=== PATIENT | female | born 1950 | race Caucasian/White ===

== ENCOUNTER 2020-01-13 00:44 | Emergency (ER) | payer MEDICARE, OTHER ==
--- NOTE | 2020-01-13 01:26 | EDM.PDOC ---
ED HPI GENERAL MEDICAL PROBLEM - General Chief Complaint: ENT Problem Time Seen by Provider: 01/13/20 01:17 Source of Information: Reports: Patient, Family, RN Notes Reviewed History Limitations: Reports: No Limitations - History of Present Illness INITIAL COMMENTS - FREE TEXT/NARRATIVE: 69-year-old female presents emergency department today with pain upper part of jaw with purulent discharge coming from a tooth, she is not had any fevers no difficulty swallowing no nausea vomiting no shortness of breath recently had dental work done Treatments [employer]: Reports: NSAIDS Upper Jaw Pain Score (Numeric/FACES): 2 - Related Data Allergies Allergy/AdvReac Type Severity Reaction Status Date / Time Sulfa (Sulfonamide Allergy Hives Verified 01/13/20 00:48 Antibiotics) Home Meds: Home Meds ALPRAZolam [Alprazolam] 0.5 tab PO ASDIRECTED 01/13/20 [History] Cholecalciferol (Vitamin D3) [Vitamin D3] 1,000 units PO ASDIRECTED 01/13/20 [History] Famotidine 10 mg PO BID 01/13/20 [History] Ibuprofen 1 tab PO ASDIRECTED 01/13/20 [History] Metoprolol Tartrate 0.5 tab PO BID 01/13/20 [History] Past Medical History HEENT History: Reports: Cataract Cardiovascular History: Reports: Arrhythmia, Other (See Below) Other Cardiovascular History: a flutter, svt Respiratory History: Reports: Other (See Below) Other Respiratory History: "partial collapsed lung" Musculoskeletal History: Reports: Fracture, Osteoporosis Neurological History: Reports: Migraines Endocrine/Metabolic History: Reports: Osteoporosis Dermatologic History: Reports: Other (See Below) Other Dermatologic History: unknown chronic rashes - Infectious Disease History Infectious Disease History: Reports: Chicken Pox, Measles, Mumps - Past Surgical History HEENT Surgical History: Reports: Cataract Surgery, Tonsillectomy Cardiovascular Surgical History: Reports: Cardiac Ablation, Other (See Below) Other Cardiovascular Surgeries/Procedures: angiogram Social & Family History - Tobacco Use Tobacco Use Status *Q: Former Tobacco User Used Tobacco, but Quit: Yes Month/Year Tobacco Last Used: 2013 - Caffeine Use Caffeine Use: Reports: Coffee - Recreational Drug Use Recreational Drug Use: No ED ROS ENT - Review of Systems Review Of Systems: See Below Constitutional: Denies: Fever HEENT: Reports: Dental Pain Respiratory: Reports: No Symptoms Cardiovascular: Reports: No Symptoms GI/Abdominal: Reports: No Symptoms ED EXAM, ENT - Physical Exam Exam: See Below Text/Narrative:: Mouth mucosa is moist and pink no erythema or exudate known soft palate tongue is midline uvula is midline dentition i shows tenderness tooth #15 I do not appreciate any drainage Exam Limited By: No Limitations General Appearance: Alert, WD/WN, No Apparent Distress Respiratory/Chest: No Respiratory Distress Course - Vital Signs Last Recorded V/S: Last Vital Signs Temp 96.0 F L 01/13/20 00:56 Pulse 66 01/13/20 00:56 Resp 14 01/13/20 00:56 BP 138/78 01/13/20 00:56 Pulse Ox 95 01/13/20 00:56 Departure - Departure Time of Disposition: :25 Disposition: Home, Self-Care 01 Condition: Fair Clinical Impression: Dental abscess - Discharge Information Instructions: Dental Abscess, [id number] Referrals: PCP,None [Primary Care Provider] - Additional Instructions: Take full course of antibiotics, continue to use ibuprofen for pain, please contact your dentist on Wednesday call return to the emergency department worsening of symptoms Sepsis Event Note (ED) - Evaluation Sepsis Screening Result: No Definite Risk - Focused Exam Vital Signs: Vital Signs Temp Pulse Resp BP Pulse Ox 01/13/20 00:56 96.0 F L 66 14 138/78 95 - Assessment/Plan Plan: Assessment Acuity = acute Site and laterality = dental abscess Etiology = probable bacterial cause Manifestations = facial pain Location of injury = Home Lab values = none Plan Elected to treat empirically amoxicillin 500 mg 3 times daily tID x10 days she will follow-up with her dentist on Wednesday This note was dictated using [employer] voice recognition software please call with any questions on syntax or grammar.
== END 2020-01-13 01:43 | disposition home or self-care (01) ==
LOC: JP.ED 00:44
DX: K04.7 Periapical abscess without sinus (principal); Z88.2 Allergy status to sulfonamides; Z79.899 Other long term (current) drug therapy; Z90.49 Acquired absence of other specified parts of digestive tract; Z87.891 Personal history of nicotine dependence
CPT/HCPCS: 99283

== ENCOUNTER 2022-01-03 08:15 | Emergency (ER) | payer MEDICARE, OTHER ==
[2022-01-03] MEDS ORDERED: Sodium Chloride 0.9% 10 ML Syringe FLUSH PRN (08:54)
[2022-01-03 10:06] LABS: ESTIMATED GFR 61 mL/min (>60); TROPONIN I HIGH SENSITIVITY 6.1 pg/mL (<=60.3)
== END 2022-01-03 11:23 | disposition home or self-care (01) ==
LOC: JP.ED 08:15
DX: K30 Functional dyspepsia (principal); R07.89 Other chest pain; F41.9 Anxiety disorder, unspecified; K21.9 Gastro-esophageal reflux disease without esophagitis; Z87.891 Personal history of nicotine dependence; Z88.2 Allergy status to sulfonamides; Z91.040 Latex allergy status; Z88.8 Allergy status to other drugs, medicaments and biological substances; Z91.048 Other nonmedicinal substance allergy status
CPT/HCPCS: 36415; 80053; 81001; 84443; 84484; 85025; 93005; 99285; J3490